=== PATIENT | male | born 1935 | race Caucasian/White ===

== ENCOUNTER 2017-10-27 13:36 | Emergency (ER) | payer MEDICARE, OTHER ==
[~2017-10-27] VITALS: Ht 167.6 cm; Wt 109.0 kg
[~2017-10-27 13:36] MED LIST: AVAPRO150 MG OR; AZITHROMYCIN250 MG PO; BENZONATATE200 MG PO; CENTRUM SILVER OR; CLARITIN10 M1 PO; DILTIAZEM180 M1 PO; ECOTRIN M/S500 MG OR; FISH OIL1000 MG PO; LANSOPRAZOLE30 MG PO; LEVAQUIN750 MG PO; NIASPAN500 MG PO; PRAVASTATIN SOD20 MG PO; PREDNISONE20 MG PO; VITAMIN B-12500 MCG PO
[2017-10-27 14:30] LABS: BUN 19 mg/dL (8-23); BUN/CREATININE RATIO 22 (12-20 (CALC)); CALCIUM 9.9 mg/dL (8.4-10.2); CARBON DIOXIDE 29 mmol/l (22-30); CREATININE 0.9 mg/dL (0.7-1.3); GFR > 60 ML/MIN (>=60 (CALC)); GFR FOR AFR.AMER. > 60 ML/MIN (>=60 (CALC)); GLUCOSE 180 mg/dL (82-115); POTASSIUM 4.1 mmol/l (3.5-5.1); SODIUM 141 mmol/l (137-146)
[2017-10-27 14:32] LABS: ANION GAP 19 (6-22 (CALC)); CHLORIDE 97 mmol/l (95-108)
[2017-10-27 14:33] LABS: HEMATOCRIT 40.5 % (39.0-50.0); HEMOGLOBIN 13.5 g/dl (14.0-18.0); IMMATURE GRANULOCYTES 1.8 % (0.0-1.0); MEAN CELL VOLUME 90.8 fL CALC (80.0-100.0); MEAN CORPUSCULAR HGB 30.3 pG CALC (26.0-32.0); MEAN CORPUSCULAR HGB CONC 33.3 g/L CALC (32.0-36.0); NEUT# 13.07 thou/uL (1.82-7.42); RED BLOOD COUNT 4.46 mill/uL (4.70-6.10); RED CELL DISTRI WIDTH 12.5 % (11.5-15.5)
[2017-10-27 14:38] LABS: INFLUENZA A NONE DETECTED (NONE DETECT); INFLUENZA B NONE DETECTED (NONE DETECT)
[2017-10-27] MEDS ORDERED: LASIX 20 MG20 MG/TAB PO (15:04)
[2017-10-27] MEDS ORDERED: PROTONIX40 MG PO (15:04)
[2017-10-27] MEDS ORDERED: METOPROL TAR25 MG PO (15:05)
[2017-10-27] MEDS ORDERED: ZETIA10 MG PO (15:06)
[2017-10-27] MEDS ORDERED: AZELASTINE HCL0.05 % OU (15:07)
[2017-10-27] MEDS ORDERED: AMLODIPINE5 MG PO (15:07)
[2017-10-27] MEDS ORDERED: ZYRTEC10 MG PO (15:08)
[2017-10-27] MEDS ORDERED: VITAMIN B 12250 MCG PO (15:09)
[2017-10-27] MEDS ORDERED: ASPIRIN 8181 MG PO (15:09)
[2017-10-27] MEDS ORDERED: CENTRUM SILVER1 TA2 PO (15:10)
[2017-10-27 16:15] VITALS: BP 157/66
== END 2017-10-27 16:15 | disposition short-term general hospital (02) ==
LOC: ED 13:36
PROVIDERS: Family Medicine
PROC: 5A09357 Assistance with Respiratory Ventilation, Less than 24 Consecutive Hours, Continuous Positive Airway Pressure (ICD-10-PCS; principal; 2017-10-27)
DX: J18.9 Pneumonia, unspecified organism (principal); J96.90 Respiratory failure, unspecified, unspecified whether with hypoxia or hypercapnia; R79.89 Other specified abnormal findings of blood chemistry; R06.02 Shortness of breath; R53.1 Weakness; R05 Cough; R50.9 Fever, unspecified; Z95.1 Presence of aortocoronary bypass graft; Z95.5 Presence of coronary angioplasty implant and graft

== ENCOUNTER → 2018-12-15 | Outpatient (REF) | payer MEDICARE, OTHER ==
[~2018-12-15] MED LIST changes: +AMLODIPINE5 MG PO; +ASPIRIN 8181 MG PO; +AZELASTINE HCL0.05 % OU; +CENTRUM SILVER1 TA2 PO; +LASIX 20 MG20 MG/TAB PO; +METOPROL TAR25 MG PO; +PROTONIX40 MG PO; +VITAMIN B 12250 MCG PO; +ZETIA10 MG PO; +ZYRTEC10 MG PO
[2018-12-15 10:02] LABS: ANION GAP 14 (6-22 (CALC)); BUN 22 mg/dL (8-23); BUN/CREATININE RATIO 25 (12-20 (CALC)); CARBON DIOXIDE 33 mmol/l (22-30); CHLORIDE 99 mmol/l (95-108); CREATININE 0.9 mg/dL (0.7-1.3); GFR > 60 ML/MIN (>=60 (CALC)); GFR FOR AFR.AMER. > 60 ML/MIN (>=60 (CALC)); POTASSIUM 4.1 mmol/l (3.5-5.1); SODIUM 142 mmol/l (137-146)
== END | disposition home or self-care (01) ==
LOC: LAB 08:26
PROVIDERS: ATTEND Nurse Practitioner
DX: E11.69 Type 2 diabetes mellitus with other specified complication (principal)